=== PATIENT | female | born 1975 | race African-American/Black ===

== ENCOUNTER 2019-09-21 13:36 | Outpatient (CLI) | payer BC, SELFPAY ==
--- NOTE | ~2019-09-21 | US_ITS ---
EXAMINATION: US venous doppler [facility] EXAM DATE: 09/21/2019 14:19 INDICATION: Left leg swelling. TECHNIQUE: Multiple grayscale, color flow and Doppler images of the left lower extremity deep venous system were obtained and reviewed. There is no prior study for comparison. FINDINGS: The left common femoral, femoral and profunda veins demonstrate normal color flow, respirat ory variation, augmentation and compressibility. Compressibility, color flow confirmed within the le ft popliteal, posterior tibial, peroneal, and greater saphenous veins. IMPRESSION: 1. No left lower extremity deep venous thrombosis. Reviewed, dictated and finalized at location A. EL MUCKER
== END 2019-09-21 13:37 | disposition home or self-care (01) ==
PROVIDERS: PCP Family Medicine; Visit Provider Internal Medicine Hematology & Oncology
DX: M79.89 Other specified soft tissue disorders (principal)
CPT/HCPCS: 93971

== ENCOUNTER 2019-12-28 13:07 | Outpatient (CLI) | payer BC, SELFPAY ==
--- NOTE | ~2019-12-28 | MM_ITS ---
EXAMINATION: MM screen RT diag LT w jose HISTORY: History of left breast cancer. Status post left lumpectomy and right breast reduction surger y. TECHNIQUE: Additional 3-D tomosynthesis images of the left breast were performed and synthetic 2-D im ages were generated. Digital screening right mammogram performed. CAD analysis was submitted and inte rpreted. COMPARISON: 09/13/2018 FINDINGS: Breast composed of scattered areas of fibroglandular density. There are lumpectomy changes in the upper outer quadrant of the left breast in the area of previous multiple known malignancy. The re is associated architectural distortion. No suspicious masses or calcifications are identified. The re are surgical changes in the right breast at previous breast reduction surgery. IMPRESSION: 1. No mammographic evidence for malignancy in either breast. 2. Routine yearly screening mammogram and regular clinical breast examination are recommended. BI-RADS Category 2: Benign finding(s). Reviewed, dictated and finalized at location A. IMPRESSION: 1. No mammographic evidence for malignancy in either breast. 2. Routine yearly screening mammogram and regular clinical breast examination a re recommended. BI-RADS Category 2: Benign finding(s).
== END 2019-12-28 13:08 | disposition home or self-care (01) ==
PROVIDERS: PCP Internal Medicine Hematology & Oncology; Visit Provider Internal Medicine Hematology & Oncology
DX: Z12.31 Encounter for screening mammogram for malignant neoplasm of breast (principal); C50.412 Malignant neoplasm of upper-outer quadrant of left female breast; Z17.1 Estrogen receptor negative status [ER-]; R92.8 Other abnormal and inconclusive findings on diagnostic imaging of breast
CPT/HCPCS: 77063; 77065; 77067

== ENCOUNTER 2020-02-25 12:57 | Emergency (ER) | payer BC, SELFPAY ==
--- NOTE | ~2020-02-25 | CT_ITS ---
EXAMINATION: CT brain wo con INDICATION: Dizziness, history of breast cancer COMPARISON: 02/04/2017, 07/16/2013 TECHNIQUE: Standard unenhanced head CT. The dose-length product (DLP) was 605.33 mGy-cm. The mA was a djusted according to patient size. Iterative reconstruction technique was employed. FINDINGS: There is no intracranial hemorrhage, acute infarction, or abnormal mass lesion. The ventric les are normal. There is no abnormal mass effect or midline shift. The bourgeois-white matter differentiat ion is normal. The basal cisterns are patent. The orbits are normal. There is a chronic, stable 1.4 c m area of fluid attenuation in the right scalp, likely a sebaceous cyst. The paranasal sinuses, masto ids and calvarium are normal. IMPRESSION: 1. No acute intracranial abnormality. Reviewed, dictated and finalized at location A.
[2020-02-25 13:01] VITALS: BP 120/79; PULSE 87; RESP 16; TEMP 36.1; O2SAT 99
--- NOTE | 2020-02-25 13:35 | ED.SKABFB ---
HPI - Skin/Abscess/Foreign Bdy General Chief complaint: Skin/Abscess/Foreign Body Stated complaint: sore on scalp, headache, dizzy Time Seen by Provider: 02/25/20 13:24 Source: patient Mode of arrival: ambulatory Limitations: no limitations History of Present Illness HPI narrative: This patient is a 44 year old female who presents for evaluation of scalp swelling , headache and dizziness. Patient states she had a scalp abscess drained years ago. She states she noticed September of last year when she started chemotherapy for breast cancer she had reoccurrence of the swelling. She states she completed all her chemo a few days ago. She states she did not speak to her oncologist about her swelling . She reports initially the swelling decreased after starting chemo, but it starte to increase again. She has come to ER today because she is having headache and dizziness. She denies fever, nausea or vomiting. Related Data Home Medications Medication Instructions Recorded Confirmed No Home Medications 02/25/20 02/25/20 Allergies Allergy/AdvReac Type Severity Reaction Status Date / Time metronidazole Allergy Severe HIVES Verified 02/25/20 13:21 Penicillins Allergy Severe HIVES Verified 02/25/20 13:21 METRONIDAZOLE HCL Allergy Severe Hives / Uncoded 08/09/19 10:33 Red Face Review of Systems Review of Systems: All systems reviewed & are unremarkable except as noted in HPI and below Constitutional: Constitutional: Denies chills and Denies fever(s) ENT: Reports dizziness Gastrointestinal: Gastrointestinal: Denies abdominal pain, Denies nausea and Denies vomiting Integumentary/Breasts: Comments: scalp lump Neurologic: Reports vertigo and Reports headache(s) [facility] Past Medical History Medical History Malignant neoplasm of upper-outer quadrant of left breast in female, estrogen receptor negative Exam Const: General: no acute distress and alert Orientation/consciousness: patient oriented x3 HENMT: Head: atraumatic and scalp lesion (right parietal scalp swelling 3 cm fluctuance, no drainage, no erythema) Face and sinus: face symmetric Throat: posterior oropharynx normal Eyes: Pupils: Equal, round and reactive pupils present EOM: EOMs intact bilaterally Resp: Effort & Inspection: normal respiratory effort Cardio: Rate: regular rate Rhythm: regular rhythm Heart sounds: no murmurs GI: Inspection: non-distended Auscultation: normal bowel sounds Skin: General skin exam: normal color Neuro: General: patient oriented x3, moves all extremities, no meningeal signs, no focal motor deficits and CN's II-XI intact bilaterally Speech: normal speech Extrem: General: normal to inspection Psych: Mental Status: mental status grossly normal Course Reevaluation(s) Reevaluation #1: Patient presents with headache and dizziness. Given her cancer diagnosis I performed labs and CT brain to assess headache and dizziness , r/o mass effect. I Discussed with patient that this is a sebaceous cyst and it may return. I discussed she may need to see surgeon for cyst removal if it returns. Date: 02/25/20 Time: 16:22 Vital Signs Vital signs: Vital Signs Temperature 97.0 F L 02/25/20 13:01 Pulse Rate 87 02/25/20 13:01 Respiratory Rate 16 02/25/20 13:01 Blood Pressure 120/79 02/25/20 13:01 Pulse Oximetry 99 02/25/20 13:01 Temperature 97.0 F L 02/25/20 13:01 Pulse Rate 92 02/25/20 14:22 Respiratory Rate 16 02/25/20 13:01 Blood Pressure 93/62 L 02/25/20 14:22 Pulse Oximetry 99 02/25/20 13:01 Procedures Abscess I/D scalp: Date of Incision: 02/25/20 Time of Incision: 16:24 Side (if applicable): right Local Anesthetic: lidocaine 1% and with epi Amount of anesthesia used (mL): 1 Technique: incised with #11 blade Amount of fluid expressed (mL): 1 Irrigation: Yes Packing
[2020-02-25 14:01] LABS: Basophils Percent Auto 1.5 % (0.2-1.2); Eosinophils Absolute Auto 0.2 K/mm3 (0-0.3); Eosinophils Percent Auto 6.7 % (0-4.4); Hematocrit 34.5 % (37.0-47.0); Hemoglobin 12.1 g/dL (12.0-15.0); Immature Granulocyte Absolute 0.01 K/mm3 (0.00-0.031); Immature Granulocyte Percent A 0.4 % (0-0.5); Lymphocytes Absolute Auto 0.62 K/mm3 (0.9-3.2); Lymphocytes Percent Auto 23.2 % (18.3-44.2); Mean Corpuscular HGB Conc 35.1 g/dl (32-36); Mean Corpuscular Volume 99.7 fl (80-100); Mean Platelet Volume 9.8 fl (7.4-10.4); Monocytes Absolute Auto 0.5 K/mm3 (0.1-0.6); Monocytes Percent Auto 16.9 % (2.6-8.5); Neutrophils Absolute Auto 1.4 K/mm3 (1.3-6.7); Neutrophils Percent Auto 51.3 % (45.5-73.1); Platelet Count Result 169 k/mm3 (150-375); Red Blood Count 3.46 M/mm3 (4.2-5.4); Red Cell Distribution Width 14.3 % (11.5-14.5); White Blood Count 2.7 K/mm3 (4.5-10.0)
[2020-02-25 14:17] LABS: Alanine Aminotransferase 32 U/L (4-35); Albumin Level 4.4 g/dL (3.5-5.1); Alkaline Phosphatase 96 U/L (38-126); Anion Gap 12.7 mmol/L (7-16); Aspartate Amino Transferase 39 U/L (14-36); Bilirubin,Total 0.6 mg/dL (0.2-1.3); Blood Urea Nitrogen 11 mg/dL (7-17); CRP 0.8 mg/dL (<1.0); Calcium 9.4 mg/dL (8.4-10.2); Carbon Dioxide 27 mmol/L (22-30); Chloride 102 mmol/L (98-107); Estimated CRCL calculation 86 ml/min; Estimated Glomerular Filt Rate > 60; Glucose 102 mg/dL (65-105); Potassium 3.7 mmol/L (3.4-5.0); Sodium 138 mmol/L (137-145)
[2020-02-25 14:18] VITALS: BP 102/66; PULSE 86
[2020-02-25 14:20] VITALS: BP 106/66; PULSE 87
[2020-02-25 14:22] VITALS: BP 93/62; PULSE 92
== END 2020-02-25 16:36 | disposition home or self-care (01) ==
PROVIDERS: Emergency Provider General Practice
DX: L72.3 Sebaceous cyst (principal); L08.9 Local infection of the skin and subcutaneous tissue, unspecified; C50.412 Malignant neoplasm of upper-outer quadrant of left female breast; Z17.1 Estrogen receptor negative status [ER-]
CPT/HCPCS: 10060; 36415; 70450; 80053; 85025; 86140; 99284

== ENCOUNTER 2020-09-05 09:10 | Outpatient (CLI) | payer OTHER, SELFPAY ==
--- NOTE | ~2020-09-05 | MM_ITS ---
EXAMINATION: MM diagnostic rik LT w jose HISTORY: Left breast cancer TECHNIQUE: Craniocaudal, mediolateral, and mediolateral oblique 3-D tomosynthesis images of the left breast were performed and synthetic 2-D images were generated. CAD analysis was submitted and interpr eted. COMPARISON: 12/28/2019, 09/13/2018 BREAST PARENCHYMAL COMPOSITION: There are scattered areas of fibroglandular density. FINDINGS: Lumpectomy changes are present in the upper outer quadrant of the left breast. There are al so changes of axillary lymph node dissection. No suspicious mass, calcification or architectural dist ortion are identified. There has been no suspicious interval change. IMPRESSION: 1. Changes of lumpectomy and left axillary lymph node dissection without suspicious suspicious findin gs. 2. Routine follow-up and screening are recommended. BI-RADS Category 2: Benign finding(s). Reviewed, dictated and finalized at location A. UNTANT AUDITOR IMPRESSION: 1. Changes of lumpectomy and left axillary lymph node dissection without suspic ious suspicious findings. 2. Routine follow-up and screening are recommended. BI-RADS Category 2: Benign finding(s).
== END 2020-09-05 09:11 | disposition home or self-care (01) ==
LOC: ANHIMG 09:14
PROVIDERS: PCP Internal Medicine Hematology & Oncology; Visit Provider Internal Medicine Hematology & Oncology
DX: C50.412 Malignant neoplasm of upper-outer quadrant of left female breast (principal); Z17.1 Estrogen receptor negative status [ER-]
CPT/HCPCS: 77061; 77065; G0279

== ENCOUNTER 2021-01-01 12:54 | Emergency (ER) | payer OTHER, SELFPAY ==
--- NOTE | ~2021-01-01 | XR_ITS ---
EXAMINATION: XR shoulder RT min 2V EXAM DATE: 01/01/2021 14:40 INDICATION: Right anterior shoulder pain s/p fall 5 days ago. TECHNIQUE: The following right shoulder projections obtained: frontal projection with internal rotati on, frontal projection with external rotation, Grashey, and scapular Y view (4+ views). There is no prior study for comparison. FINDINGS: No evidence of right shoulder rotator cuff calcific tendinosis. Unremarkable right gleno humeral and acromioclavicular joints. There are no acute fractures or dislocations identified. There is no subcutaneous gas. The soft tissue is unremarkable. There are no radiopaque foreign bodies. IMPRESSION: 1. XR shoulder RT min 2V exam without acute osseous findings. Reviewed, dictated and finalized at location B.
[2021-01-01 14:00] VITALS: BP 112/81; PULSE 77; RESP 16; TEMP 36.3; O2SAT 100
--- NOTE | 2021-01-01 14:55 | ED.UPPEXIN ---
HPI - Extremity Injury (Upper) General Chief Complaint: Extremity Injury, Upper Stated Complaint: right shoulder Time Seen by Provider: 01/01/21 14:10 Source: patient and RN notes reviewed Mode of arrival: ambulatory Limitations: no limitations History of Present Illness HPI narrative: Patient presents today complaining of right shoulder pain 5 days ago after falling while rollerskating. Denies numbness or tingling in the arm or hand. States she cannot raise her arm without causing pain. Describes the pain is throbbing and currently rates 6/10. She has been taking ibuprofen without much relief. She has also tried a TENS unit, ice, and heat. complaint: injury to: right and shoulder Related Data Allergies Allergy/AdvReac Type Severity Reaction Status Date / Time metronidazole Allergy Severe HIVES Verified 01/01/21 14:04 Penicillins Allergy Severe HIVES Verified 01/01/21 14:04 METRONIDAZOLE HCL Allergy Severe Hives / Uncoded 01/01/21 14:04 Red Face Review of Systems Review of Systems: Narrative: CONSTITUTIONAL: Denies body aches, fever, chills, or sweats. EYES: Denies visual changes, redness, or discharge. ENT: Denies rhinorrhea, congestion, sore throat, or otalgia. CARDIOVASCULAR: Denies chest pain, palpitations, or edema. RESPIRATORY: Denies cough or dyspnea. GASTROINTESTINAL: Denies abdominal pain, nausea, vomiting, or diarrhea. GENITOURINARY: Denies dysuria or hematuria. SKIN: Denies rash, itching, or wounds. MUSCULOSKELETAL: Denies back pain, or myalgia. + Right shoulder injury NEUROLOGIC: Denies headache, numbness, tingling, or weakness. PSYCH: Denies depression or anxiety. [facility] Past Medical History Medical History (Updated 01/01/21 @ 14:59 by Jaida Padron, [employer]ICE [employer]INCIPAL, BC) Malignant neoplasm of upper-outer quadrant of left breast in female, estrogen receptor negative Surgical History Surgical History Delivery by section Family History Family History Other Breast cancer Heart disease Comments At time of signature, I have reviewed and agree with nursing past medical, surgical, social and family history unless otherwise noted. Please see nursing chart for further information. There is no relevant family history pertinent to the presenting complaint Exam Narrative: Exam Narrative: GENERAL: Well-appearing, well-nourished, and in no acute distress. HEAD: Normocephalic, atraumatic. EYES: EOMI. No redness or drainage. Conjunctivae normal. ENT: Mucous membranes pink and moist. NECK: Normal AROM. CHEST: No respiratory distress. MUSCULOSKELETAL: No bony tenderness of the spine. EXTREMITIES: Right shoulder: Tenderness to the anterior, posterior, and lateral shoulder joint. No edema, ecchymosis, or erythema noted. Patient can raise the shoulder in all directions up to about 45 degrees. External rotation increased pain significantly. Internal rotation increases pain less than external rotation. Distal sensation intact. Capillary refill normal. Radial pulse normal. No pain in the elbow or wrist. SKIN: Warm, dry, no rash. Capillary refill normal. Normal skin turgor. NEURO: No focal deficits. Alert and oriented x3. Gait steady. PSYCH: Normal affect. No signs of depression or anxiety. Course Vital Signs Vital signs: Vital Signs Temperature 97.4 F L 01/01/21 14:00 Pulse Rate 77 01/01/21 14:00 Respiratory Rate 16 01/01/21 14:00 Blood Pressure 112/81 01/01/21 14:00 Pulse Oximetry 100 01/01/21 14:00 Temperature 97.4 F L 01/01/21 14:00 Pulse Rate 77 01/01/21 14:00 Respiratory Rate 16 01/01/21 14:00 Blood Pressure 112/81 01/01/21 14:00 Pulse Oximetry 100 01/01/21 14:00 Reviewed. Pt has been instructed to follow up with her PCP regarding her elevated blood pressure today. MDM - Extremity Injury (Upper) Differential Diagnosis Differen
== END 2021-01-01 15:04 | disposition home or self-care (01) ==
PROVIDERS: Emergency Provider Nurse Practitioner
DX: S46.911A Strain of unspecified muscle, fascia and tendon at shoulder and upper arm level, right arm, initial encounter (principal); V00.121A Fall from non-in-line roller-skates, initial encounter; Y93.51 Activity, roller skating (inline) and skateboarding; Z85.3 Personal history of malignant neoplasm of breast
CPT/HCPCS: 73030; 99213; G0463

== ENCOUNTER 2021-04-29 11:26 | Outpatient (CLI) | payer OTHER, SELFPAY ==
--- NOTE | ~2021-04-29 | MM_ITS ---
EXAMINATION: MM diagnostic rik BI w jose HISTORY: History of left breast cancer TECHNIQUE: Additional 3-D tomosynthesis images of the breasts were performed and synthetic 2-D images were generated. CAD analysis was submitted and interpreted. COMPARISON: Comparison to multiple prior studies sequentially, with oldest reviewed study dated 09/13. BREAST PARENCHYMAL COMPOSITION: Breast composed of scattered areas of fibroglandular density. FINDINGS: Bilateral breast asymmetries are unchanged. There are lumpectomy changes in the upper outer quadrant of the left breast. IMPRESSION: 1. No mammographic evidence for malignancy in either breast. 2. Routine yearly screening mammogram and regular clinical breast examination are recommended. BI-RADS Category 2: Benign finding(s). Reviewed, dictated and finalized at location A. IMPRESSION: 1. No mammographic evidence for malignancy in either breast. 2. Routine yearly screening mammogram and regular clinical breast examination a re recommended. BI-RADS Category 2: Benign finding(s).
== END 2021-04-29 11:27 | disposition home or self-care (01) ==
LOC: ANHIMG 11:27
PROVIDERS: Visit Provider Internal Medicine Hematology & Oncology
DX: C50.412 Malignant neoplasm of upper-outer quadrant of left female breast (principal); Z17.1 Estrogen receptor negative status [ER-]
CPT/HCPCS: 77062; 77066; G0279

== ENCOUNTER 2021-05-29 21:04 | Observation (INO) | payer OTHER, SELFPAY ==
--- NOTE | ~2021-05-29 | NM_ITS ---
EXAMINATION: NM terry stress w perfusion DATE: 05/30/2021 11:49 INDICATION: Chest pain. TECHNIQUE: Rest images were obtained following intravenous administration of 10 mCi Tc99m tetrofosmin (Myoview). The patient was infused intravenously with Lexiscan (regadenoson). Then, 30.4 mCi Tc99m t etrofosmin (Myoview) was administered intravenously, and stress images were obtained. Data was recons tructed into short axis and horizontal and vertical long axis SPECT images. Gated SPECT images were a lso obtained. COMPARISON: None. FINDINGS: There is no definite reversible or fixed perfusion abnormality to suggest ischemia or infar ction. There is no segmental wall motion abnormality. Left ventricular ejection fraction measures 6 0%. IMPRESSION: 1. No definite ischemia or infarct. 2. Normal left ventricular ejection fraction measuring 60%. Reviewed, dictated and finalized at location A.
--- NOTE | ~2021-05-29 | XR_ITS ---
EXAMINATION: XR chest 2V 05/29/2021 21:41 INDICATION: Left-sided chest pain. Left arm numbness. PROCEDURE: 2 view chest COMPARISON: 12/09/2018 FINDINGS: The lungs are clear. The cardiomediastinal silhouette is within normal limits. There are no pleural effusions. There is no pneumothorax suspected. Interval removal port catheter. IMPRESSION: 1: NO ACUTE CARDIOPULMONARY DISEASE. Reviewed, dictated and finalized at location A.
--- NOTE | ~2021-05-29 | CT_ITS ---
EXAMINATION: CTA chest PE protocol DATE: 05/30/2021 13:46 INDICATION: Chest pain, history of breast cancer TECHNIQUE: Computed tomography angiography (CTA) of the chest was performed with 100 mL Omnipaque-350 intravenous contrast timed to evaluate the pulmonary arteries. Coronal maximum intensity projection 3D-reconstructions were created by the technologist. The dose-length product (DLP) was 253.47 mGy-cm. Automated exposure control and iterative reconstruction technique were employed. COMPARISON: 11/10/2018 FINDINGS: The pulmonary arteries are well-opacified. No pulmonary embolism is identified. There is mi ld dependent atelectasis. No pleural effusion or pneumothorax is identified. There is bilateral axill stacy lymphadenopathy. There are also pathologically enlarged left internal mammary, anterior mediastin al, and aorticopulmonary window lymph nodes. The heart size is normal. Lumpectomy changes are noted i n the left breast. Skin thickening of the left breast is consistent with radiation treatment. IMPRESSION: 1. No pulmonary embolism. 2. Mediastinal and bilateral axillary lymphadenopathy, consistent with metastatic disease. Reviewed, dictated and finalized at location A. IMPRESSION: 1. No pulmonary embolism. 2. Mediastinal and bilateral axillary lymphadenopathy, consistent with metastat ic disease.
--- NOTE | ~2021-05-29 | CT_ITS ---
EXAMINATION: CT brain wo con INDICATION: Headache COMPARISON: 02/25/2020 TECHNIQUE: Standard unenhanced head CT. The dose-length product (DLP) was 605.33 mGy-cm. The mA was a djusted according to patient size. Iterative reconstruction technique was employed. FINDINGS: There is no intracranial hemorrhage, acute infarction, or abnormal mass lesion. The ventric les are normal. There is no abnormal mass effect or midline shift. The bourgeois-white matter differentiat ion is normal. The basal cisterns are patent. The orbits are normal. There is mild mucosal thickening of the paranasal sinuses. IMPRESSION: 1. No acute intracranial abnormality. Reviewed, dictated and finalized at location A.
--- NOTE | 2021-05-29 21:07 | ECG_ITS ---
Measurements Intervals [place] Rate: 72 P: 55 DE: 145 QRS: 15 QRSD: 88 T: 17 QT: 382 QTc: 420 Interpretive Statements SINUS RHYTHM NORMAL ECG Electronically Signed On 05-30-2021 5:35:17 CDT by Artie Graham D.O.
[2021-05-29] MEDS: ASPIRIN 81 MG CHEWABLE TABLET 324 MG PO (21:20)
[2021-05-29 21:27] VITALS: BP 113/78; PULSE 81; RESP 16; TEMP 36.6; O2SAT 100
[2021-05-29 21:31] VITALS: BP 113/78; PULSE 81; RESP 16; TEMP 36.7; O2SAT 99
[2021-05-29 21:31] LABS: Basophils Percent Auto 0.9 % (0.2-1.2); Eosinophils Absolute Auto 0.4 K/mm3 (0-0.3); Eosinophils Percent Auto 8.1 % (0-4.4); Hemoglobin 11.9 g/dL (12.0-15.0); Lymphocytes Absolute Auto 1.05 K/mm3 (0.9-3.2); Lymphocytes Percent Auto 24.4 % (18.3-44.2); Mean Corpuscular Hemoglobin 31.7 pg (26-34); Mean Corpuscular Volume 93.3 fl (80-100); Mean Platelet Volume 9.7 fl (7.4-10.4); Monocytes Absolute Auto 0.5 K/mm3 (0.1-0.6); Monocytes Percent Auto 11.4 % (2.6-8.5); Neutrophils Absolute Auto 2.4 K/mm3 (1.3-6.7); Neutrophils Percent Auto 55.2 % (45.5-73.1); Platelet Count Result 205 k/mm3 (150-375); Red Blood Count 3.75 M/mm3 (4.2-5.4); Red Cell Distribution Width 12.1 % (11.5-14.5); White Blood Count 4.3 K/mm3 (4.5-10.0)
[2021-05-29 21:40] LABS: INR 0.9; Partial Thromboplastin Time 24.6 SECONDS (22.3-36.8); Prothrombin Time 12.4 Seconds (11.1-14.7)
[2021-05-29 22:02] LABS: Anion Gap 8 mmol/L (8-16); Blood Urea Nitrogen 11 mg/dL (7-17); Calcium 9.6 mg/dL (8.4-10.2); Carbon Dioxide 26 mmol/L (22-30); Chloride 106 mmol/L (98-107); Estimated CRCL calculation 77 ml/min; Estimated Glomerular Filt Rate > 60; Glucose 108 mg/dL (65-110); Potassium 3.7 mmol/L (3.4-5.0); Sodium 140 mmol/L (137-145)
--- NOTE | 2021-05-29 22:04 | ECG_ITS ---
Measurements Intervals [place] Rate: 75 P: 35 [place]: 116 QRS: -20 QRSD: 89 T: 11 QT: 400 QTc: 450 Interpretive Statements SINUS RHYTHM BASELINE ARTIFACT- I, II, III, AVR, AVF, V1, V3-V6 NORMAL ECG Electronically Signed On 05-30-2021 5:36:52 CDT by Artie Graham D.O.
[2021-05-29 22:14] LABS: Troponin I < 0.012 ng/mL (0.000-0.034)
--- NOTE | 2021-05-29 22:21 | ED.CHESTPAIN ---
HPI - Chest Pain General Chief Complaint: Chest Pain Stated Complaint: chest pain, left hand numbness Time Seen by Provider: 05/29/21 21:45 Source: patient, RN notes reviewed and old records reviewed Mode of arrival: ambulatory Limitations: no limitations History of Present Illness HPI narrative: This is a 45 year old female with history of breast CA who presents for evaluation of chest pain and left arm numbness. Patient states she was standing when she developed midsternal chest pressure that radiated to back and jaw. She reports associated left head pain and left hand numbness. She states her symptoms are worse with exertion. These symptoms have been constant for 2 hours. She also reports nausea and shortness of breath. Related Data Home Medications Medication Instructions Recorded Confirmed No Home Medications 05/30/21 05/30/21 Allergies Allergy/AdvReac Type Severity Reaction Status Date / Time metronidazole Allergy Severe HIVES/RED Verified 05/29/21 21:13 FACE Penicillins Allergy Severe HIVES Verified 01/01/21 14:04 Review of Systems Review of Systems: All systems reviewed & are unremarkable except as noted in HPI and below PMFSH Past Medical History Medical History (Updated 05/30/21 @ 05:52 by Kimberly Carbone MD) Malignant neoplasm of upper-outer quadrant of left breast in female, estrogen receptor negative Surgical History Surgical History (Updated 05/29/21 @ 22:33 by Kimberly Carbone MD) Delivery by section History of partial mastectomy of left breast Family History Family History (Updated 05/30/21 @ 03:07 by Melina Andrade RN) Sibling Breast cancer Asthma Father Heart disease Heart attack Social History Social History Smoking status: Never smoker Second hand tobacco smoke exposure: No Alcohol intake: never Substance use: never Substance use type: does not use Spiritual care concerns: No Exam Narrative: GENERAL: Well-appearing, well-nourished, and in no acute distress. HEAD: Normocephalic, atraumatic EYES: PERRLA and EOMI, conjunctiva clear without discharge EARS: TM's clear bilaterally without erythema or dullness NOSE: Nares clear, no rhinorrhea or epistaxis THROAT:Mucous membranes moist, Oropharynx normal without erythema, exudate, peritonsillar swelling or fluctuance NECK: Supple, without lymphadenopathy or mass RESPIRATORY: No respiratory distress, Airway patent, Respirations non-labored, Clear to auscultation without rales, rhonchi or wheeze HEART: Regular rate and rhythm. No murmur heard. Normal peripheral pulses. ABDOMEN: Soft, nontender, nondistended, normal active bowel sounds. No masses. No rebound or guarding, No organomegaly. EXTREMITIES: No edema, normal strength with full range of motion. SKIN: Warm, dry, normal color without rash NEURO: Alert and oriented x3. CN 2-12 grossly intact. No focal deficits. PSYCH: Normal mood and affect. Skin: General skin exam: normal color Rashes: no rashes Neuro: General: patient oriented x3, moves all extremities, no meningeal signs, no focal motor deficits, CN's II-XI intact bilaterally and normal sensation to monofilament Cranial nerves: Yes CN's II-XII intact bilaterally and Yes Nystagmus not present Speech: normal speech Motor exam (neuro): 5/5 motor strength present throughout, Pronator motor function not present, No tremor noted and No asterixis Sensory Exam: normal sensation and Normal double simultaneous stimulation for sensation Coordination: [id number] test normal and [id number] test normal Extrem: General: normal to inspection Other: strong bilateral radial pulse Psych: Mental Status: mental status grossly normal Course Reevaluation(s) Reevaluation #1: I discussed with patient labs and Ct unremarkable. She agrees to observation due to continued symptoms. No deficit on neuroexam. Tr
[2021-05-29 22:32] LABS: D Dimer 0.38 ug/mL (<0.48)
[2021-05-29] MEDS: NITROGLYCERIN OINTMENT 1 INCH DOSE 0.5 INCH TRANSDERM (22:44)
[2021-05-29] MEDS: ONDANSETRON INJ 4 MG/2 ML VIAL IV PUSH (22:45)
[2021-05-29] MEDS: SODIUM CHLORIDE 0.9% IV 1,000 ML 999 ML IV CONT (22:45)
[2021-05-30] VITALS (10 sets, daily range): BP systolic 102–142; BP diastolic 62–78; PULSE 60–94; RESP 12–20; TEMP 35.9–36.5; O2SAT 92–100; BMI 30.4
--- NOTE | 2021-05-30 | EST_ITS ---
Patient Info Name: Al Ulloa Age: 45 years : 1975 Gender: Female Ht: 66 in Wt: 184 lbs BSA: 2.00 m2 HR: 66 bpm BP: 113 / 74 mmHg Heart Rhythm: Sinus Rhythm Exam Date: 05/30/2021 10:32 AM Exam Location: [facility] Stress Patient Status: Outpatient Admit Date: 05/30/2021 Staff Ordering Physician: Artie Graham DO Attending Provider: Melissa Beck PA-C Exercise Technologist: Jaye Yan CT Exercise Physician: Artie Graham DO Exam Type: CA stress terry w NM Study Info Indications R07.9 - Chest pain, unspecified A regadenoson stress test was performed. Summary 1. 1. Negative lexiscan stress test for ischemic ST changes by ECG criteria. 2. 2. Stable hemodynamics throughout the test. 3. 3. Nuclear scan to follow and will be reported separately. Please correlate with it. 4. 4. Patient informed of the above results. Protocol: Lexiscan Stress ECG Details Stage: REST Duration (min): 1 min : 7 sec HR (bpm): 77 SBP (mmHg): 113 DBP (mmHg): 74 Stage: REST Duration (min): 19 min : 34 sec HR (bpm): 82 SBP (mmHg): 113 DBP (mmHg): 74 Stage: STAGE 1 Duration (min): 0 min : 59 sec HR (bpm): 109 SBP (mmHg): 115 DBP (mmHg): 60 Stage: RECOVERY Duration (min): 1 min : 0 sec HR (bpm): 105 SBP (mmHg): 115 DBP (mmHg): 60 Stage: RECOVERY Duration (min): 2 min : 0 sec HR (bpm): 103 SBP (mmHg): 104 DBP (mmHg): 65 Stage: RECOVERY Duration (min): 2 min : 8 sec HR (bpm): 103 SBP (mmHg): 104 DBP (mmHg): 65 Rest HR: 82 bpm Peak HR: 110 bpm Rest Sys BP: 113 mmHg Peak Sys BP: 115 mmHg Max Pred HR: 175 bpm % Max Pred HR: 63 % Target HR: 149 bpm Max RPP: 12,650 bpm*mmHg Termination Reason: Completed protocol Cardiac Symptoms: Shortness of breath Total Time: 1 min : 0 sec Rest Patten BP: 74 mmHg Peak Patten BP: 60 mmHg Total Dose: 0.4 mg Resting ECG Sinus rhythm. Stress ECG No ST changes. Arrhythmias None. Report Signatures
--- NOTE | 2021-05-30 | ECHO_ITS ---
Patient Info Name: Al Ulloa Age: 45 years : 1975 Gender: Female Ht: 66 in Wt: 188 lbs BSA: 2.02 m2 HR: 67 bpm BP: 142 / 69 mmHg Technical Quality: Good Exam Date: 05/30/2021 1:09 PM Exam Location: [facility] Pulmonary Exam Room: 211 Patient Status: Inpatient Admit Date: 05/30/2021 Staff Ordering Physician: Pancho Morel MD Anime Designer: Briana Allen RDCS Attending Provider: Melissa Beck PA-C Referring Physician: Maria Teresa CRUZ; Exam Type: CA echo doppler color flow Study Info Indications - chest discomfort Complete two-dimensional, color flow and Doppler transthoracic echocardiogram is performed. Summary 1. Complete two-dimensional, color flow and Doppler transthoracic echocardiogram is performed. 2. Left ventricular chamber dimension is normal. 3. Left ventricular systolic function is normal, estimated at 55-60%. 4. The left ventricular diastolic function is grade I diastolic dysfunction. 5. E/e' 5 is not elevated. 6. No pulmonary hypertension, estimated pulmonary arterial systolic pressure is 14 mmHg. Left Ventricle E/e' 5 is not elevated. Left ventricular chamber dimension is normal. Left ventricular systolic function is normal, estimated at 55-60%. The left ventricular diastolic function is grade I diastolic dysfunction. Right Ventricle Right ventricular chamber dimension is normal. Right ventricular systolic function is normal. Left Atria Left atrial chamber dimension is normal. Right Atria Right atrial chamber dimension is normal. Aortic Valve The aortic valve is trileaflet. There is no aortic valve stenosis. There is no aortic valve regurgitation. Pulmonic Valve There is no pulmonic regurgitation. Mitral Valve There is no mitral valve stenosis. There is no mitral valve regurgitation. Tricuspid Valve There is no tricuspid valve regurgitation. No pulmonary hypertension, estimated pulmonary arterial systolic pressure is 14 mmHg. Pericardium/Pleural There is no pericardial effusion. Inferior Vena Cava Normal inferior vena cava with >50% collapse upon inspiration consistent with normal right atrial pressure, 5 mmHg. Aorta The aortic root size at the sinus of Valsalva is normal. Left Ventricular Outflow Tract Name Value Normal LVOT 2D LVOT Diameter 2.0 cm LVOT Doppler LVOT Peak Gradient 4 mmHg LVOT Mean Gradient 2 mmHg LVOT VTI 20 cm LVOT VTI/AV VTI Ratio 0.9 LVOT Stroke Volume 62 ml LVOT CO 14.0 l/min LVOT CI 6.9 l/min/m2 Pulmonic Valve Name Value Normal PV Doppler PV Peak Gradient 2 mmHg Mitral Valve
[2021-05-30] MEDS: MORPHINE SULFATE (*CRX) 4 MG/ML INJ IV PUSH (01:09)
[2021-05-30] MEDS: ONDANSETRON INJ 4 MG/2 ML VIAL IV PUSH (01:10)
[2021-05-30 01:27] LABS: Troponin I < 0.012 ng/mL (0.000-0.034)
--- NOTE | 2021-05-30 01:30 | PM.IMHP ---
H&P: HPI History of Present Illness Date/Time: 05/30/21 01:30 Chief Complaint: Chest pain Narrative: This is a 45-year-old female with past medical history significant for left breast CA status post surgical removal and radiation. Patient presents to the to the emergency room due to chest pain rule localized to the precordial area with radiation to the left shoulder and arm with numbness, precordial pain. This happened while the foot patient was standing after using her bathroom. Denies any syncope near syncope, lightheadedness , dizziness, nausea, vomiting ,abdominal pain, diarrhea, fevers, rigors, chills ,cough ,sputum production, she has been in her usual state of health. Denies any chest pain with activity or exertion no PND no orthopnea no leg swelling. Preliminary workup has been essentially nonrevealing Review of Systems Review of Systems: Chest pain Constitutional: Constitutional: Denies chills, Denies fatigue, Denies fever(s), Denies lethargy, Denies night sweats and Denies weakness Eyes: Eyes: Denies change in vision ENT: Denies dysphagia, Denies vertigo, Denies dizziness, Denies nasal congestion, Denies nasal discharge, Denies nasal obstruction and Denies odynophagia Cardiovascular: Cardiovascular: Reports chest pain at rest, Denies irregular heart rhythm, Denies claudication, Denies leg edema, Denies lightheadedness, Denies radiating jaw, neck or arm pain, Denies palpitations, Denies dyspnea, Denies dyspnea on exertion and Denies orthopnea Respiratory: Respiratory: Denies cough, Denies excessive phlegm production, Denies dyspnea and Denies wheezing Gastrointestinal: Gastrointestinal: Denies abdominal pain, Denies dyspepsia, Denies heartburn, Denies nausea and Denies vomiting Genitourinary: Genitourinary: Reports as per HPI Musculoskeletal: Musculoskeletal: Denies arthralgias Integumentary/Breasts: Skin/Breast: Denies rash Neurologic: Denies focal weakness and Denies Sensory deficit (Neuro) Psychiatric: Psychiatric: Reports as per HPI Endocrine: Endocrine: Reports as per HPI Hematologic/Lymphatic: Hematologic/Lymphatic: Reports as per HPI Allergic/Immunologic: Allergic/Immunologic: Reports as per HPI [facility] Past Medical History Medical History (Updated 05/30/21 @ 05:08 by Pancho Morel MD) Malignant neoplasm of upper-outer quadrant of left breast in female, estrogen receptor negative Surgical History Surgical History (Updated 05/29/21 @ 22:33 by Kimberly Carbone MD) Delivery by section History of partial mastectomy of left breast Family History Family History (Updated 05/30/21 @ 03:07 by Melina Andrade, RUBEN) Sibling Breast cancer Asthma Father Heart disease Heart attack Social History Social History Smoking status: Never smoker Second hand tobacco smoke exposure: No Alcohol intake: never Substance use: never Substance use type: does not use Spiritual care concerns: No Meds Home Medications and Allergies Allergies Allergy/AdvReac Type Severity Reaction Status Date / Time metronidazole Allergy Severe HIVES/RED Verified 05/29/21 21:13 FACE Penicillins Allergy Severe HIVES Verified 01/01/21 14:04 Vital Signs Vital Signs - 24 hr 05/29/21 21:27 05/29/21 21:31 05/30/21 01:17 Temperature 97.9 F 98.1 F Pulse Rate 81 81 81 Respiratory Rate 16 16 18 Blood Pressure 113/78 113/78 113/78 Pulse Oximetry 100 99 100 Exam Narrative: Laying in [facility] Const: General: cooperative, comfortable, no acute distress, well developed, alert, awake and other (Well-appearing) Nutritional Appearance: average body habitus Orientation/consciousness: patient oriented x3 HENMT: Head: normal to inspection, normocephalic and atraumatic Ears: hearing grossly normal bilaterally General nose exam: Normal external nose present Face and sinus: normal facial exam Mouth: Yes Normal oral and pa
--- NOTE | 2021-05-30 03:04 | PC.NURSE ---
Report received by RUBEN Coon with the ED department at 0243. All questions answered and plan of care reviewed.
--- NOTE | 2021-05-30 03:05 | ADMGEN ---
This patient, Al Ulloa, was admitted to IMU Room 211-01 at 0257 from the ED. Patient/family oriented to hospital policies and general routines including ID bracelet, bed and alarms, visiting hours, pain management, procedures, bathroom and other care routines, personal items, smoking policy, room service/diet, and visiting hours. Information on how to activate the Rapid Response Team has been discussed. Patient/Family are encouraged to report perceived risks to care and to ask questions if they do not understand what they are told or what they should do.
[2021-05-30 03:49] LABS: Troponin I < 0.012 ng/mL (0.000-0.034)
[2021-05-30 05:46] LABS: Cholesterol 208 mg/dL (0-200); HDL Direct 81 mg/dL; Triglycerides 82 mg/dL (<150)
[2021-05-30 05:57] LABS: LDL Cholesterol Direct 89 mg/dL
--- NOTE | 2021-05-30 06:43 | PM.CNCAR ---
Assessment and Plan Assessment and plan (1) Chest pain: Code(s): R07.9 - Chest pain, unspecified Status: Acute Assessment and Plan: Atypical. Resolved. Ruled out for NM by series of troponin and EKG. Obtain Lexiscan myoview stress test and echo. If unremarkable, no further cardiac workup is needed. History of Present Illness History of Present Illness Consult date/time: 05/30/21 06:43 Reason for consult: Chest pain. 45 yr old woman presents to ED with chest pain since last evening at 6:30 pm. She has a history of left breast cancer s/p resection, radiation and chemotherapy. 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 It lasted until she arrived to ED. No longer having it now. She can walk 1 mile without any problems but recently having some dizziness while standing or walking. She drinks 2 cups of coffee a day and 1 small bottle of water. Denies orthopnea, PND, edema. WBC 4.3, Hb 11.9.Trop neg x 3 sets. EKG: Sinus rhythm. CXR: Normal. Reason For Visit: chest pain, parethesia Review of Systems Review of Systems: All systems reviewed & are unremarkable except as noted in HPI and below Constitutional: Constitutional: Reports as per HPI, Denies chills and Denies fever(s) Cardiovascular: Cardiovascular: Reports as per HPI, Reports chest pain, Denies irregular heart rhythm, Denies leg edema, Reports lightheadedness and Denies dyspnea on exertion Respiratory: Respiratory: Reports as per HPI and Denies dyspnea Gastrointestinal: Gastrointestinal: Reports as per HPI and Denies abdominal pain Genitourinary: Genitourinary: Reports as per HPI and Denies dysuria Musculoskeletal: Musculoskeletal: Reports as per HPI Neurologic: Reports as per HPI, Reports dizziness and Denies syncope [facility] Past Medical History Medical History (Updated 05/30/21 @ 05:52 by Kimberly Carbone MD) Malignant neoplasm of upper-outer quadrant of left breast in female, estrogen receptor negative Surgical History Surgical History (Updated 05/29/21 @ 22:33 by Kimberly Carbone MD) Delivery by section History of partial mastectomy of left breast Family History Family History (Updated 05/30/21 @ 03:07 by Melina R. Raymond, RN) Sibling Breast cancer Asthma Father Heart disease Heart attack Social History Social History Smoking status: Never smoker Second hand tobacco smoke exposure: No Alcohol intake: never Substance use: never Substance use type: does not use Spiritual care concerns: No Meds Home Medications and Allergies Home Medications Medication Instructions Recorded Confirmed Type No Home Medications 05/30/21 05/30/21 History Allergies Allergy/AdvReac Type Severity Reaction Status Date / Time metronidazole Allergy Severe HIVES/RED Verified 05/29/21 21:13 FACE Penicillins Allergy Severe HIVES Verified 01/01/21 14:04 Vital Signs Vital Signs - 24 hr 05/29/21 21:27 05/29/21 21:31 05/30/21 01:17 Temperature 97.9 F 98.1 F Pulse Rate 81 81 81 Respiratory Rate 16 16 18 Blood Pressure 113/78 113/78 113/78 Pulse Oximetry 100 99 100 05/30/21 02:46 05/30/21 04:00 Temperature 97.4 F L Pulse Rate 71 67 Respiratory Rate 16 20 Blood Pressure 113/78 142/69 H Pulse Oximetry 100 100 Exam Const: General: cooperative, healthy appearing and comfortable Resp: Auscultation: clear to auscultation bilaterally, no crackles, no rales, no rhonchi and no wheezes Cardio: Jugular venous distension: no JVD Rate: regular rate Rhythm: regular rhythm Heart sounds: no murmurs Peripheral pulses: dorsalis pedis present GI: GI Palp: No abdominal tenderness and Yes Soft to palpation Neuro: General: oriented to person, oriented to place and oriented to time Extrem: Right lower extremity: no edema Left lower extremity: no
--- NOTE | 2021-05-30 13:03 | PM.DS ---
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 follows dr. mishra (4) Lymphadenopathy: Code(s): R59.1 - Generalized enlarged lymph nodes Status: Acute Assessment and Plan: as below, PET will be ordered outpt DS: Summary Hospital Course Hospital Course: Patient is a 45-year-old female with a past medical history of treated breast cancer who presented emergency room for chest pain with associated arm pain. Patient tells me that she was standing up and noted that she had midsternal chest squeezing that radiated to her arm and caused her to have shortness of breath. This improved when she sat down. She also had a slight headache with this as well so she came into the ER. EKG in the ER showed normal sinus rhythm. Troponins negative x3. CBC shows slight leukopenia. D-dimer negative. BMP within normal limits. Patient was admitted to the hospitalist service and observed. She had no squeezing chest pain or arm pain throughout her stay. She underwent a stress test which did not show any evidence of ischemia and also saw cardiology. While hospitalized, she did have some pleuritic like chest pain that felt like a stabbing pain when she breathed in that was different from the chest pain she had the day prior. Her chest x-ray was negative on admission and her lungs were clear on exam. The pain was not reproducible and was completely different than the CP that brought her in. A CTA was done which show no PE but did show mediastinal and bilateral axillary lymphadenopathy which may indicate metastatic disease. I let her know that she needs to follow up with Dr. Mishra and she has an appointment next week for this. She wsa feel better day of discharge and was ready to go. She was educated on the worrisome signs and symptosm to come back to the ER or and was discharged in stable condition. I called Dr. Mishra and let him know about the results. He is going to order a PET scan and I let the pt know to expect a call from scheduling. Status at Discharge Functional status at discharge: independent ambulation Overall status at discharge: patient is progressing back to baseline Time Spent with Patient Time attestation: Total time spent providing and/or coordinating discharge services:38 min Exam Narrative: General: Well developed well nourished patient in NAD HEENT: normocephalic Neck: supple Neuro: Alert and oriented x4. Cranial nerves 2-12 intact. Equal strength the upper lower extremity 5/5 CV:RRR. Telemetry without abnormal review Resp:CTA. No retractions or dyspnea on exertion. No reproducible pain to palpation Abd: Soft, non distended. No pain to palpation. Positive bowel sounds Extremities: No swelling, erythema, or pain to palpation. DS: Data Data Completed and Pending Labs on day of discharge: Labs from last 24 hours 05/30/21 05/30/21 05/30/21 03:15 00:29 00:28 WBC RBC Hgb Hct MCV MCH MCHC RDW Plt Count MPV Immature Gran % (Auto) Neut % (Auto) Lymph % (Auto) [place] % (Auto) Eos % (Auto) Baso % (Auto) Lymph # (Auto) M
--- NOTE | 2021-05-30 13:46 | PC.NURSE ---
On 05/30/21, the student, [Sharonda Saab], provided care and completed [facility] documentation on this patient. I have reviewed the student's documentation and agree with the findings.
== END 2021-05-30 17:08 | disposition home or self-care (01) ==
LOC: ANHED 05-30 02:22 → ANHIMU 05-30 02:36
PROVIDERS: Family Medicine; Internal Medicine Cardiovascular Disease; Admitting Provider Internal Medicine; Emergency Provider General Practice; Visit Provider Family Medicine
DX: R07.89 Other chest pain (principal); D72.819 Decreased white blood cell count, unspecified; R59.1 Generalized enlarged lymph nodes; Z85.3 Personal history of malignant neoplasm of breast; Z90.12 Acquired absence of left breast and nipple
CPT/HCPCS: 36415; 70450; 71046; 71275; 78452; 80048; 80061; 84484; 85025; 85380; 85610; 85730; 93005; 93017; 93306; 96365; 96374; 96375; 99285; A9270; A9502; G0378; J0131; J2270; J2405; J2785; J7030; Q9967

== ENCOUNTER 2021-06-20 09:57 | Outpatient (CLI) | payer OTHER, SELFPAY ==
--- NOTE | ~2021-06-20 | PE_ITS ---
EXAMINATION: PET skull to mid thigh DATE: 06/20/2021 12:54 INDICATION: Malignant neoplasm of the upper outer quadrant of left breast. TECHNIQUE: Blood glucose level was 101 mg/dL. 7.650 mCi of 18-fluorodeoxyglucose (18-FDG) was adminis tered i.v. Low dose computed tomography (CT) images were acquired from the base of the brain to the p roximal thighs for attenuation correction and anatomic localization. Automated exposure control was e mployed. Dose-length product (DLP) was 576 mGy-cm. Positron emission tomography (PET) images were acq uired in the same distribution. COMPARISON: Chest CT 05/30/2021 FINDINGS: Head/neck: There is increased activity in the oropharynx, major salivary glands, and glottis without CT correlate, likely physiologic. There is increased activity in a normal-sized left supraclavicular lymph node. Chest: There is mild scarring at left lung apex. No pleural effusion. The heart size is normal. No pe ricardial effusion. There is increased activity in mediastinal, left subpectoral, and bilateral axill stacy lymph nodes. A left internal mammary node measures 2.7 x 2.0 cm with maximum SUV of 7.3. There is skin thickening of left breast, consistent with changes of radiation therapy. There is increased act ivity in infiltrating soft tissue in medial and inferior left breast. There are changes of lumpectomy of left breast. Abdomen/pelvis/proximal thighs: The liver, gallbladder, spleen, pancreas, adrenal glands, and kidneys are normal. There are no dilated loops of bowel. There is a widemouthed ventral hernia containing no nobstructed small bowel. There are no pathologically enlarged lymph nodes. There is no free intraperi toneal fluid. There is no osseous metastatic disease. IMPRESSION: 1. Mediastinal, left subpectoral, bilateral axillary, and left supraclavicular lymphadenopathy with i ncreased activity, consistent with metastatic disease. 2. Increased activity in infiltrating soft tissue in medial and inferior left breast suspicious for r ecurrent malignancy. Reviewed, dictated and finalized at location A. HOLOGIST SOCIAL IMPRESSION: 1. Mediastinal, left subpectoral, bilateral axillary, and left supraclavicular lymphadenopathy with increased activity, consistent with metastatic disease. 2. Increased activity in infiltrating soft tissue in medial and inferior left b reast suspicious for recurrent malignancy.
[2021-06-20 10:13] LABS: Glucose Point of Care 101 mg/dl (65-105)
== END 2021-06-20 09:58 | disposition home or self-care (01) ==
PROVIDERS: Visit Provider Internal Medicine Hematology & Oncology
DX: C50.412 Malignant neoplasm of upper-outer quadrant of left female breast (principal); Z17.1 Estrogen receptor negative status [ER-]; R59.0 Localized enlarged lymph nodes; R92.8 Other abnormal and inconclusive findings on diagnostic imaging of breast
CPT/HCPCS: 78815; A9552

== ENCOUNTER 2021-07-15 02:41 | Day surgery (SDC) | payer SELFPAY ==
[2021-07-10 16:13] VITALS: BMI 31.1
--- NOTE | 2021-07-10 16:18 | SUR.PREOP ---
Report to the Outpatient Waiting Room, entrance under the green pavilion located off [facility], at time _0930___ on date __07/15/21 . OR Time: __11:30__. - You and your visitor will be asked a series of questions to screen for COVID 19 for your protection. - A mask is required within the hospital. - Only one visitor is allowed at this time. Patient visitors will be guided where to wait when not with patient. Preoperative COVID Testing Requirements: No COVID Test needed if: (proof is required; if not received patient will have Rapid Test prior to entry) - Patient has received COVID Vaccine at least 14 days prior to procedure date or - Patient has positive COVID test result within last 90 days of surgery date. COVID Test needed if above criteria is not met If not COVID vaccinated a COVID test must be conducted within 72 hours of surgery and patient is asked to isolate self from time of testing until procedure. You will go to the [employer] [facility] Testing Site for your COVID testing. The [employer] [facility] site is located at the corner of [address] [facility]. You will only be called if COVID results are positive and your surgeon may reschedule your elective surgery date. Patients may have clear liquids (water, carbonated beverages, clear teas, apple juice) until 3 hours prior to surgery with a maximum of 20 ounces. - No food from midnight until time of surgery - Infants may have breast milk until 4 hours before surgery, infant formula 6 hours prior to surgery. - Children will be allowed to drink immediately following surgery. If applicable, please bring a bottle or sippy cup to assist with drinking. Juice, water, soda, and popsicles are readily available. For infants on formula, please bring formula the day of surgery. Pacifiers are allowed. Take the following medications with a SIP of water the morning of surgery: __N/A Medications to discontinue per physician vitamins Date to take last dose____3 days prior Please no make-up, nail bolivian, hairspray, perfume, deodorant, or body powder the day of surgery. No jewelry (including any body piercings) or valuables the day of surgery, leave them at home. Please take a shower or bath the night before, or the morning of, surgery with an antibacterial soap. Wear comfortable, loose fitting clothing. Children are encouraged to wear pajamas. - Jewelry must be removed prior to entering the operating room. Rings and piercings that are not removed may be cut off. - The hospital will not accept responsibility for valuables. - Please leave all valuables, including medications, at home the day of surgery. If you are going home after surgery, a licensed vacuum truck driver must drive you home. - NO public transportation without another adult. - We recommend that an adult stay with you for 24 hours following discharge. - We also recommend that you do not drive, make important decision, drink alcoholic beverages, or take any drugs that were not prescribed by your health care provider for at least 24 hours after your discharge time. For Pediatric surgeries, we recommend two adults accompany the child home (only one inside the building at this time). Follow any additional instructions given to you from your surgeon. Telephone instructions given to ___patient and asked if any additional questions and then verbalized understanding. Patient advised to call surgeon office or pre surgery nurse liaison [phone] if any additional questions.
--- NOTE | ~2021-07-15 | XR_ITS ---
EXAMINATION: XR chest port-a-cath/central DATE: 07/15/2021 12:54 INDICATION: Port placement. TECHNIQUE: A single frontal view of the chest was obtained. COMPARISON: Chest 2 views 05/29/2021 FINDINGS: There is mild scarring at left lung apex. There is mild atelectasis at left lung base. No p leural effusion or pneumothorax. The heart size is normal. Mediastinal lymphadenopathy is noted. Ther e is a left subclavian port with tip in superior vena cava. There is deviation of the catheter betwee n the clavicle and first rib. There are radiopaque markers in left breast. IMPRESSION: 1. Port tip in superior vena cava. Deviation of the catheter between the clavicle and first rib sugge sts increased risk of catheter fracture (pinch-off syndrome). 2. Mediastinal lymphadenopathy, consistent with metastatic disease. Reviewed, dictated and finalized at location A. WAY MAINTENANCE CREW WORKER IMPRESSION: 1. Port tip in superior vena cava. Deviation of the catheter between the clavic le and first rib suggests increased risk of catheter fracture (pinch-off syndro me). 2. Mediastinal lymphadenopathy, consistent with metastatic disease.
--- NOTE | ~2021-07-15 | XR_ITS ---
EXAMINATION: XR fl guide central line place EXAM DATE: 07/15/2021 12:38 INDICATION: Danitza catheter insertion. TECHNIQUE: Fluoroscopy used during XR fl guide central line place performed by Dr. Leonor Forrest MD. Radiologist was not present for the imaging or procedure. Total fluoroscopic time of 28 seconds . The DAP for this procedure was 1.1 mGym2. A total of 2 images sent to PACS from the exam. FINDINGS: Images demonstrate left-sided portacatheter in expected position. Correlate with procedur e note. IMPRESSION: Fluoroscopy used during XR fl guide central line place. Reviewed, dictated and finalized at location B. OCELLULOSE MAKER
[2021-07-15 09:49] VITALS: BP 118/81; PULSE 90; RESP 16; TEMP 36.3; O2SAT 99
[2021-07-15] MEDS: LACTATED RINGERS 1,000 ML 30 ML IV CONT (10:03)
[2021-07-15] MEDS: KETOROLAC 15 MG/ML VIAL (*BKC) IV PUSH (10:04)
--- NOTE | 2021-07-15 10:07 | WPDANESEPPF ---
Anes - Initial Pre Proc Eval Procedure: Operation Date: 07/15/21 11:30 Proposed Procedures p Insertion of Danitza Cath - Leonor Forrest MD Date/Time: 07/15/21 10:07 Surgeon: Leonor Forrest MD Pre Op Diagnosis: Breast Cancer Patient Data Age: 45 Gender: F Height: 1.68 m Weight: 84.8 kg Last Vital Signs Temp 36.3 C L 07/15/21 09:49 Pulse 90 07/15/21 09:49 Resp 16 07/15/21 09:49 BP 118/81 07/15/21 09:49 Pulse Ox 99 07/15/21 09:49 Allergies Allergy/AdvReac Type Severity Reaction Status Date / Time metronidazole Allergy Severe HIVES/RED Verified 07/15/21 09:44 FACE Penicillins Allergy Severe HIVES Verified 07/15/21 09:44 Home Medications Medication Instructions Recorded Confirmed Type No Home Medications 05/30/21 07/15/21 History Patient hx anesthesia problems: none Family hx anesthesia problems: none Results Review: All pre-operative results and documents have been reviewed as part of the pre-operative evaluation. [facility] Past Medical History Medical History Malignant neoplasm of upper-outer quadrant of left breast in female, estrogen receptor negative Surgical History Surgical History Delivery by section History of partial mastectomy of left breast Family History Family History Sibling Breast cancer Asthma Father Heart disease Heart attack Social History Social History Smoking status: Never smoker Second hand tobacco smoke exposure: No Alcohol intake: never Alcohol use details: socially Substance use: never Substance use type: marijuana Last use: 4 months ago Living arrangements: with family Spiritual care concerns: No Anes - Eval Final PreProcedure Day of Procedure 07/15/21 10:07 Patient weight: obese Heart: regular rate and rhythm Lungs: clear to auscultation Airway: Mallampati scale class 1 Neurological: alert and oriented Last oral intake: >/= 8 hours ASA classification: III Emergent: no Anesthetic plan: proceed Anesthesia type and monitoring: general GIVS and standard monitoring Results Review: All pre-operative results and documents have been reviewed as part of the pre-operative evaluation. Informed Consent: The patient's anesthetic plan and its attendant risks and benefits were discussed with the patient/family/POA. Questions were solicited and answers provided to the satisfaction of the patient/family/POA.
[2021-07-15] MEDS: ceFAZolin 2 GM/D5W 50 ML 2 GM/50 ML BAG IVPB (12:00)
--- NOTE | 2021-07-15 12:01 | P.PNGS_ITS ---
Progress Note: A&P Assessment and Plan (1) Lymphadenopathy: Code(s): R59.1 - Generalized enlarged lymph nodes Status: Acute Assessment and Plan: Metastatic breast cancer, will need further treatment, will place port Subjective Subjective Date/Time Seen: 07/15/21 12:01 The patient is a 45-year-old female presenting for port placement. The patient has a history breast cancer status post chemo radiation. The patient actually had a port placed for her previous round of chemo in her left chest. The patien t had subsequent completion of treatment and had port removed. The patient denies anyt other central venous catheterization. Recent surveillance imaging shows lymphadenopathy and subsequent metastatic disease. Review of Systems Review of Systems: All systems reviewed & are unremarkable except as noted in HPI and below Exam Const: General: cooperative, comfortable and no acute distress Nutritional Appearance: overweight Orientation/consciousness: patient oriented x3 Neck: Neck: normal visual inspection and full ROM Chest: Chest palpation & inspection: normal inspection of the chest Other: incision from previous L sided VAD Resp: Effort & Inspection: normal respiratory effort Auscultation: clear to auscultation bilaterally Cardio: Rate: regular rate Rhythm: regular rhythm GI: Inspection: normal to inspection GI Palp: No abdominal tenderness Objective Data Vital Signs Vital Signs: Vital Signs - 24 hr 07/15/21 09:49 Temperature 36.3 C L Pulse Rate 90 Respiratory Rate 16 Blood Pressure 118/81 Pulse Oximetry 99 Meds/Results Medications: Active Medications Generic Name Dose Route Start Last Admin Trade Name Freq PRN Reason Stop Dose Admin Fentanyl Citrate 25 mcg 07/15/21 10:07 Fentanyl Citrate Inj (*Crx) 100 Mcg/2 Ml Vial IV PUSH Q2M PRN Pain Lactated Ringer's 1,000 mls @ 30 mls/hr 07/15/21 08:15 07/15/21 10:03 Lr - Lactated Ringers Iv IV CONT 30 mls/hr .Q24H KASI Administration Lactated Ringer's 1,000 mls @ 30 mls/hr 07/15/21 10:10 Lr - Lactated Ringers Iv IV CONT .Q24H KASI Ondansetron HCl 4 mg 07/15/21 10:07 Ondansetron Inj 4 Mg/2 Ml Vial IV PUSH ONCE PRN Nausea Oxycodone HCl 5 mg 07/15/21 10:07 Oxycodone Hcl (*Crx) 5 Mg Tab Ir PO ONCE PRN Pain
--- NOTE | 2021-07-15 12:05 | HP_ITS ---
This document was recreated with the correct heading. The original document was signed by Leonor Forrest MD on 07/15/21 1205. ADDENDUM please change document to History and Physical Addendum Documented By: Leonor Forrest MD 07/17/21906 Addendum Signed By: <Electronically signed by Leonor Forrest MD> [id number] Progress Note: A&P Assessment and Plan (1) Lymphadenopathy: Code(s): R59.1 - Generalized enlarged lymph nodes Status: Acute Assessment and Plan: Metastatic breast cancer, will need further treatment, will place port Subjective Subjective Date/Time Seen: 07/15/21 12:01 The patient is a 45-year-old female presenting for port placement. The patient has a history breast cancer status post chemo radiation. The patient actually had a port placed for her previous round of chemo in her left chest. The patient had subsequent completion of treatment and had port removed. The patient denies anyt other central venous catheterization. Recent surveillance imaging shows lymphadenopathy and subsequent metastatic disease. Review of Systems Review of Systems: All systems reviewed & are unremarkable except as noted in HPI and below Exam Const: General: cooperative, comfortable and no acute distress Nutritional Appearance: overweight Orientation/consciousness: patient oriented x3 Neck: Neck: normal visual inspection and full ROM Chest: Chest palpation & inspection: normal inspection of the chest Other: incision from previous L sided VAD Resp: Effort & Inspection: normal respiratory effort Auscultation: clear to auscultation bilaterally Cardio: Rate: regular rate Rhythm: regular rhythm GI: Inspection: normal to inspection GI Palp: No abdominal tenderness Objective Data Vital Signs Vital Signs: Vital Signs - 24 hr 07/15/21 09:49 Temperature 36.3 C L Pulse Rate 90 Respiratory Rate 16 Blood Pressure 118/81 Pulse Oximetry 99 Meds/Results Medications: Active Medications Generic Name Dose Route Start Last Admin Trade Name Freq PRN Reason Stop Dose Admin Fentanyl Citrate 25 mcg 07/15/21 10:07 Fentanyl Citrate Inj (*Crx) 100 Mcg/2 Ml Vial IV PUSH Q2M PRN Pain Lactated Ringer's 1,000 mls @ 30 mls/hr 07/15/21 08:15 07/15/21 10:03 Lr - Lactated Ringers Iv IV CONT 30 mls/hr .Q24H KASI Administration Lactated Ringer's 1,000 mls @ 30 mls/hr 07/15/21 10:10 Lr - Lactated Ringers Iv IV CONT .Q24H KASI Ondansetron HCl 4 mg 07/15/21 10:07 Ondansetron Inj 4 Mg/2 Ml Vial IV PUSH ONCE PRN Nausea Oxycodone HCl 5 mg 07/15/21 10:07 Oxycodone Hcl (*Crx) 5 Mg Tab Ir PO ONCE PRN Pain This dictation may have been done utilizing a voice recognition system. Attempts have been made to correct errors. However, there may be uncorrected grammatical, spelling, and recognition errors present. Report Initialized date/time: Leonor Forrest MD 07/15/21 / 1204 Electronically signed by: Leonor Forrest MD 07/15/211204 [facility]
--- NOTE | 2021-07-15 12:05 | WPDHPUPDATE1 ---
History and Physical Update Update Date/Time: 07/15/21 12:05 History and Physical has been reviewed, including an updated exam of the patient. There are NO changes in the patient's condition. Risks, benefits, and alternatives have been discussed and questions answered. Patient agrees to proceed with procedure.
[2021-07-15] MEDS: HEPARIN SODIUM 5,000 UNITS/ML VIAL 5000 UNITS IRRIGATION (12:21)
[2021-07-15] MEDS: BUPIVACAINE HCL 0.5% PF 30 ML VIAL 20 ML INFILTRATE (12:21)
[2021-07-15] MEDS: HEPARIN SODIUM, PORCINE 10,000 UNITS/10 ML VIAL 4000 UNITS IRRIGATION (12:22)
--- NOTE | 2021-07-15 12:36 | W.PM.PROC2 ---
Procedure Note - Detailed Date of Procedure 07/15/21 Pre-op Diagnosis Metastatic breast Cancer Post-op Diagnosis same Procedure Performed placement left subclavian venous access device under fluoroscopic guidance Surgeon Leonor Forrest MD Anesthesia MAC and local Indications 45-year-old female with metastatic left breast cancer Findings first stick L SCV Description of Procedure Patient was brought into the operating room and placed in the supine position. After adequate induction of mac anesthesia, the patient was prepped and draped in normal sterile fashion. Time-out was then done to verify the patient's identity, as well as the procedure being performed. I began by making a small incision in the left chest, I then gained access into the left subclavian vein with an 18 gauge needle. I then placed the guidewire into the vein and confirmed placement via fluoroscopic guidance. I then locally anesthetized the area in the left chest. I then enlarged the incision around the guidewire including making a subcutaneous pocket inferiorly to allow placement of the port itself. I then placed a dilating sheath over the guidewire into the left subclavian vein via sterile Seldinger technique. This was once again done and confirmed via fluoroscopic guidance. I then removed the dilator and the guidewire, now just leaving the sheath in the vein. I then fed the previously flushed catheter into the left subclavian vein under fluoroscopic guidance. At approximately 20 cm, the catheter was noted to be near the atrial caval junction. I then peeled away the sheath, now just leaving the catheter in the vein. I then was able to easily draw and flush from the catheter. The catheter was cut to fit and attached to the port itself. The port was placed into the previously made subcutaneous pocket and sutured in with 0 Ethibond suture. Final fluoroscopic view showed the termination of the catheter at the atrial caval junction with a nice smooth curvature back to the port itself. I was able to gain access to the port with a Taylor needle and was able to easily draw and flush from the port. I then flushed 4 cc of a final heparin flush into the port. The incision was closed with 3 0 Vicryl suture in the subcutaneous tissue and the skin was closed with 4 O Monocryl subcuticular suture. Dermabond was then placed on wound. The patient tolerated the procedure well and will be sent to the recovery room in stable condition. Implants L SCV VAD Estimated Blood Loss 5 Drains No Packing No Pathology none sent Complications No immediate complications Condition stable Disposition PACU
[2021-07-15 12:42] VITALS: BP 105/70; PULSE 87; RESP 12; O2SAT 99
[2021-07-15 13:10] VITALS: BP 108/77; PULSE 78; RESP 12; O2SAT 100
[2021-07-15 13:40] VITALS: BP 105/77; PULSE 72; RESP 12
== END 2021-07-15 13:52 | disposition home or self-care (01) ==
PROVIDERS: Visit Provider Surgery
PROC: (CPT 36561; principal; 2021-07-15 11:30)
DX: C50.412 Malignant neoplasm of upper-outer quadrant of left female breast (principal); C77.9 Secondary and unspecified malignant neoplasm of lymph node, unspecified; Z17.1 Estrogen receptor negative status [ER-]; E66.9 Obesity, unspecified; Z68.30 Body mass index [BMI] 30.0-30.9, adult
CPT/HCPCS: 36561; 77001; C1788; J0690; J1644; J1885; J2250; J2704; J3010; J7030; J7120

== ENCOUNTER 2021-09-27 09:09 | Outpatient (CLI) | payer BC, SELFPAY ==
--- NOTE | ~2021-09-27 | CT_ITS ---
EXAMINATION:CT diagnostic chest w con DATE: 09/27/2021 09:33 INDICATION: Malignant neoplasm of upper outer quadrant of left breast. TECHNIQUE: Computed tomography (CT) of the chest was performed with 75 mL Omnipaque 350 intravenous c ontrast. Automated exposure control and iterative reconstruction technique were employed. The dose-le ngth product (DLP) was 189.10 mGy-cm. COMPARISON: Chest CT 05/30/2021 FINDINGS: There is mild scarring at the lung apices. There is mild atelectasis in left lower lobe. No pleural effusion. There is a left subclavian port with tip in superior vena cava. The heart size is normal. No pericardial effusion. Main pulmonary artery is enlarged, consistent with pulmonary arteria l hypertension. There is mediastinal and bilateral axillary lymphadenopathy. For example, a 3.1 x 2.5 cm right axillary node previously measured 1.7 x 1.7 cm. There are multiple masses in left breast wi th muscular involvement. Radiopaque markers in one of the masses may be brachytherapy seeds. There is skin thickening of left breast. There is a 2.0 x 1.5 cm mass in inferior right breast. There is mild thoracic spondylosis. IMPRESSION: 1. Worsened left breast masses, consistent with primary malignancy. 2. Worsened mass in inferior right breast, which may be a second primary malignancy or metastatic dis ease. 3. Worsened mediastinal and bilateral axillary lymphadenopathy, consistent with metastatic disease. Reviewed, dictated and finalized at location A. ER AND STOCK HANDLER HELPER IMPRESSION: 1. Worsened left breast masses, consistent with primary malignancy. 2. Worsened mass in inferior right breast, which may be a second primary malign bailey or metastatic disease. 3. Worsened mediastinal and bilateral axillary lymphadenopathy, consistent with metastatic disease.
== END 2021-09-27 09:10 | disposition home or self-care (01) ==
LOC: ANHIMG 09:11
PROVIDERS: Visit Provider Internal Medicine Hematology & Oncology
DX: C50.412 Malignant neoplasm of upper-outer quadrant of left female breast (principal); Z17.1 Estrogen receptor negative status [ER-]; R59.0 Localized enlarged lymph nodes; R92.8 Other abnormal and inconclusive findings on diagnostic imaging of breast
CPT/HCPCS: 71260; Q9967

== ENCOUNTER 2022-03-11 13:59 | Outpatient (CLI) | payer BC, SELFPAY ==
--- NOTE | ~2022-03-11 | PE_ITS ---
EXAMINATION: PET skull to mid thigh DATE: 03/11/2022 15:43 INDICATION: Metastatic breast cancer. TECHNIQUE: Blood glucose level was 101 mg/dL. 9.128 mCi of 18-fluorodeoxyglucose (18-FDG) was adminis tered i.v. Low dose computed tomography (CT) images were acquired from the base of the brain to the p roximal thighs for attenuation correction and anatomic localization. Automated exposure control was e mployed. Dose-length product (DLP) was 844 mGy-cm. Positron emission tomography (PET) images were acq uired in the same distribution. COMPARISON: PET/CT 06/20/2021, chest CT 09/27/2021 FINDINGS: Head/neck: There is increased activity in the oral cavity, pharynx, major salivary glands, and glotti s without abnormal CT correlate, likely physiologic. There is increased activity in a normal-sized ri ght subarticular lymph node. Chest: The lungs demonstrate mild atelectasis. No pleural effusion. The heart size is normal. There i s a left subclavian port with tip in right atrium. There is mediastinal lymphadenopathy with increase d activity. For example, a 2.1 x 1.4 cm noted aorticopulmonary window demonstrates maximum SUV of 10. 2 and measured 3.3 x 1.9 cm on 09/27/2021. There are ill-defined masses in left breast with increased activity. For example, there is a 2.3 x 2.2 cm mass in medial left breast with maximum SUV of 7.7 rich t previously measured 2.8 x 2.6 cm on 09/27/2021. There is skin thickening in left breast. There is an ill-defined mass in medial aspect of left pectoralis major muscle with increased activity. There are brachytherapy seeds in a mass in left breast. There is bilateral axillary lymphadenopathy with incre ased activity. For example, a 3.5 x 3.0 cm right axillary node demonstrates maximum SUV of 17.0 and m easured 3.2 x 2.5 cm on 09/27/21. There is increased activity in a normal-sized bilateral subpectoral lymph nodes. There is a 1.8 x 1.3 cm mass in inferior right breast with maximum SUV of 6.4 that measu red 2.0 x 1.6 cm on 09/27/21. There is increased activity in bone marrow in multiple vertebral bodies without abnormal CT correlate, likely bone marrow stimulation. Abdomen/pelvis/proximal thighs: There is diffuse hepatic steatosis. The gallbladder, spleen, pancreas , adrenal glands, and kidneys are normal. There are no dilated loops of bowel. There is a widemouthed ventral hernia containing nonobstructed small bowel. There are no pathologically enlarged lymph node s. There is no free intraperitoneal fluid. There is increased activity in bone marrow in lumbosacral spine without abnormal CT correlate, likely bone marrow stimulation. IMPRESSION: 1. Left breast masses with increased activity with improvement from 09/27/2021, consistent with malign bailey. 2. Stable right breast mass with increased activity, consistent with a second primary malignancy or m etastatic disease. 3. Chest lymphadenopathy with increased activity with improvement from 09/27/2021, consistent with met astatic disease. Reviewed, dictated and finalized at location A. IMPRESSION: 1. Left breast masses with increased activity with improvement from 09/27/2021, consistent with malignancy. 2. Stable right breast mass with increased activity, consistent with a second p rimary malignancy or metastatic disease. 3. Chest lymphadenopathy with increased activity with improvement from 2, consistent with metastatic disease.
[2022-03-11 14:19] LABS: Glucose Point of Care 101 mg/dl (65-105)
== END 2022-03-11 14:00 | disposition home or self-care (01) ==
PROVIDERS: Visit Provider Internal Medicine Hematology & Oncology
DX: C50.412 Malignant neoplasm of upper-outer quadrant of left female breast (principal); R59.0 Localized enlarged lymph nodes
CPT/HCPCS: 78815; A9552

== ENCOUNTER 2022-04-27 21:12 | Emergency (ER) | payer BC, SELFPAY ==
[2022-04-27] VITALS (27 sets, daily range): BP systolic 80–122; BP diastolic 49–77; PULSE 83–110; RESP 11–24; TEMP 36.9; O2SAT 95–100
--- NOTE | ~2022-04-27 | CT_ITS ---
EXAMINATION: CTA chest PE abdomen pel DATE: 04/28/2022 00:50 INDICATION: Chest pain, shortness of breath. Abdominal pain and vomiting. History of breast cancer. TECHNIQUE: Computed tomography angiography (CTA) of the chest, abdomen and pelvis was performed with 100 mL Omnipaque-350 intravenous contrast timed to evaluate the pulmonary arteries. Coronal maximum i ntensity projection 3D-reconstructions were created by the technologist. Automated exposure control a nd iterative reconstruction technique were employed. Exam dose: 768.03 mGy-cm total exam DLP. COMPARISON: 03/11/2022 PET/CT scan: FINDINGS: Bilateral breast masses and prominent skin thickening of the left breast are noted in addit ion to probable left axillary lymphadenopathy (left axilla is only partially included in this examina tion), and severe right axillary lymphadenopathy. Bilateral internal mammary lymphadenopathy and superior, prevascular, aortopulmonary window lymphaden opathy are noted. Normal heart size. No thoracic aortic aneurysm or dissection. No pericardial effusion. There is diagnostic contrast enhancement of the pulmonary arteries and no evidence of pulmonary embol ism. Mild discoid atelectasis or scarring, left lower lobe. Left apical scarring. No pulmonary consolidati on or mass lesion is evident. Left Port-A-Cath catheter with tip in right atrium. No hepatic space-occupying mass lesion. The gallbladder is unremarkable. No gallbladder wall thickeni ng or pericholecystic fluid or fat stranding. No bile duct or pancreatic duct dilatation. No pancreat ic mass lesion or calcification. Normal splenic size. No adrenal mass lesion. No renal mass lesion or urinary tract calculus or hydroureteronephrosis. Normal caliber of the abdominal aorta. The uterus, adnexal areas and urinary bladder are unremarkable. Normal appendix. No bowel obstruction or intraperitoneal free air. No suspicious osteolytic or osteoblastic lesions are noted. IMPRESSION: Bilateral breast masses, prominent left breast skin thickening, axillary adenopathy, par ticularly severe on the right and bilateral internal mammary lymphadenopathy as well as mediastinal a denopathy, consistent with metastatic disease No evidence of pulmonary embolism Reviewed, dictated and finalized at Location A. Reviewed, dictated and finalized at location A. IMPRESSION: Bilateral breast masses, prominent left breast skin thickening, ax illary adenopathy, particularly severe on the right and bilateral internal mamm stacy lymphadenopathy as well as mediastinal adenopathy, consistent with metastat ic disease No evidence of pulmonary embolism
[2022-04-27 21:49] LABS: Basophils Percent Auto 0.3 % (0.2-1.2); Eosinophils Absolute Auto 0.2 K/mm3 (0-0.3); Eosinophils Percent Auto 2.4 % (0-4.4); Hematocrit 33.9 % (37.0-47.0); Hemoglobin 11.3 g/dL (12.0-15.0); Immature Granulocyte Absolute 0.03 K/mm3 (0.00-0.031); Immature Granulocyte Percent A 0.4 % (0-0.5); Lymphocytes Absolute Auto 0.84 K/mm3 (0.9-3.2); Lymphocytes Percent Auto 11.4 % (18.3-44.2); Mean Corpuscular HGB Conc 33.3 g/dl (32-36); Mean Corpuscular Hemoglobin 28.5 pg (26-34); Mean Corpuscular Volume 85.4 fl (80-100); Mean Platelet Volume 9.8 fl (7.4-10.4); Monocytes Absolute Auto 0.4 K/mm3 (0.1-0.6); Monocytes Percent Auto 4.7 % (2.6-8.5); Neutrophils Percent Auto 80.8 % (45.5-73.1); Platelet Count Result 294 k/mm3 (150-375); Red Blood Count 3.97 M/mm3 (4.2-5.4); Red Cell Distribution Width 14.1 % (11.5-14.5); White Blood Count 7.4 K/mm3 (4.5-10.0)
[2022-04-27 22:05] LABS: Alanine Aminotransferase 18 U/L (6-35); Albumin Level 4.1 g/dL (3.5-5.1); Alkaline Phosphatase 95 U/L (38-126); Anion Gap 13 mmol/L (8-16); Aspartate Amino Transferase 25 U/L (14-36); Bilirubin,Total 0.5 mg/dL (0.2-1.3); Blood Urea Nitrogen 16 mg/dL (7-17); Calcium 9.1 mg/dL (8.4-10.2); Carbon Dioxide 24 mmol/L (22-30); Chloride 98 mmol/L (98-107); Estimated Glomerular Filt Rate > 60; Glucose 136 mg/dL (65-110); Lipase 90 U/L (23-300); Potassium 3.8 mmol/L (3.4-5.0); Sodium 135 mmol/L (137-145)
[2022-04-27] MEDS: CENTRAL LINE FLUSH 10 ML IV PUSH (22:08)
--- NOTE | 2022-04-27 22:55 | ECG_ITS ---
Measurements Intervals [place] Rate: 92 P: 54 ID: [id number] QRS: 15 QRSD: 79 T: 31 QT: 336 QTc: 416 Interpretive Statements SINUS RHYTHM BASELINE ARTIFACT- I, II, III NORMAL ECG COMPARED TO ECG 05/29/2021 22:53:20 NO SIGNIFICANT CHANGES Electronically Signed On 04-28-2022 6:37:42 CDT by Artie Graham D.O.
[2022-04-27] MEDS: SODIUM CHLORIDE 0.9% IV 1,000 ML 999 ML IV CONT (23:22)
[2022-04-27] MEDS: METOCLOPRAMIDE HCL INJ 10 MG/2 ML VIAL IV PUSH (23:22)
[2022-04-27] MEDS: PANTOPRAZOLE SODIUM IV 40 MG VIAL IV PUSH (23:22)
[2022-04-27] MEDS: diphenhydrAMINE HCl INJ 50 MG/ML VIAL 25 MG IV PUSH (23:22)
[2022-04-27 23:32] LABS: Appearance Urine Clear (Clear); Bilirubin Urine Negative (Negative); Blood Urine Negative (Negative); Color Urine Yellow (Yellow); Glucose Urine UA Negative (Negative); Ketones Urine Trace mg/dL (Negative); Leukocyte Esterase Ur Negative LEU/UL (Negative); Nitrate Urine Negative (Negative); Protein Urine Trace mg/dL (Negative); Specific Grav Ur 1.015 (1.001-1.035); pH Urine 7.5 (5.0-9.0)
--- NOTE | 2022-04-27 23:36 | ED.NAVMDI ---
HPI - Nausea/Vomiting/Diarrhea General Chief complaint: Nausea/Vomiting/Diarrhea Stated complaint: sick from chemo Time Seen by Provider: 04/27/22 21:25 Source: patient Mode of arrival: ambulatory Limitations: no limitations History of Present Illness HPI Narrative: This is a 46 year old female that presents to the ER for nausea, vomiting and diarrhea. Ongoing over the last couple of days. Reports history of metastatic breast cancer. She was started on a new chemotherapy last Thursday. Reports over the last couple of days she has started to have burning epigastric/chest pain. Also reports some shortness of breath. Denies fevers. Related Data Home Medications Medication Instructions Recorded Confirmed ondansetron 8 mg disintegrating 8 mg PO Q8H PRN Nausea 08/22/21 02/27/22 tablet dexamethasone 4 mg tablet See Rx Instructions .Route .COMPLEX 09/12/21 02/27/22 cyanocobalamin (vitamin B-12) 1,000 mcg PO DAILY 11/14/21 02/27/22 1,000 mcg tablet (Vitamin B-12) ferrous sulfate 325 mg (65 mg 325 mg PO BID 11/14/21 02/27/22 iron) tablet zolpidem 10 mg tablet (Ambien) 10 mg PO HS PRN Sleep 12/05/21 02/27/22 ivammbmr-bjy-madx-FA-Ca carb-vit K 1 tablet PO DAILY 12/19/21 02/27/22 18 mg iron-400 mcg-500 mg tablet potassium chloride 10 mEq 10 meq PO DAILY 01/16/22 02/27/22 tablet,extended release Allergies Allergy/AdvReac Type Severity Reaction Status Date / Time metronidazole Allergy Severe HIVES/RED Verified 04/27/22 21:29 FACE Penicillins Allergy Severe HIVES Verified 04/27/22 21:29 Review of Systems Review of Systems: CONSTITUTIONAL: Denies fever CARDIOVASCULAR: Reports chest pain. Denies edema. RESPIRATORY: Reports dyspnea. Denies cough GASTROINTESTINAL: Reports abdominal pain, nausea, vomiting, and diarrhea. GENITOURINARY: Denies dysuria All systems reviewed & are unremarkable except as noted in HPI and below PMFSH Past Medical History Medical History Malignant neoplasm of upper-outer quadrant of left breast in female, estrogen receptor negative Surgical History Surgical History Delivery by section History of partial mastectomy of left breast Family History Family History Sibling Breast cancer Asthma Father Heart disease Heart attack Social History Social History Smoking status: Never smoker Second hand tobacco smoke exposure: No Alcohol intake: never Alcohol use details: socially Substance use: never Substance use type: marijuana Last use: 4 months ago Spiritual care concerns: No Exam Narrative: GENERAL: Well-appearing, well-nourished, and in no acute distress. HEAD: Normocephalic, atraumatic. EYES: EOMI. CHEST: Clear to auscultation. No respiratory distress. No wheezes rales or rhonchi HEART: Regular rate and rhythm. No murmur heard. Normal peripheral pulses. ABDOMEN: Soft, nondistended, normal active bowel sounds. Mild tenderness to palpation in epigastrium, without guarding. No CVA tenderness EXTREMITIES: Normal range of motion. No edema. SKIN: Warm, dry, no rash. NEURO: No focal deficits. Alert and oriented x3. PSYCH: Normal mood and affect Course Vital Signs Vital signs: Vital Signs Temperature 98.5 F 04/27/22 21:14 Pulse Rate 94 04/27/22 21:14 Respiratory Rate 16 04/27/22 21:14 Blood Pressure 122/77 04/27/22 21:14 Pulse Oximetry 100 04/27/22 21:14 Temperature 98.5 F 04/27/22 21:14 Pulse Rate 76 04/28/22 01:31 Respiratory Rate 16 04/28/22 01:30 Blood Pressure 92/59 L 04/28/22 01:30 Pulse Oximetry 99 04/28/22 01:31 MDM - Nausea/Vomiting/Diarrhea MDM Narrative Medical decision making narrative: Patient presents to the emergency department for epigastric pain, v
[2022-04-27 23:40] LABS: Bacteria Urine Trace /hpf; Mucus Urine Rare /lpf; RBC Urine 0-2 /hpf (0-2); Squamous Epithelial Cell Urine Rare /hpf (Few); WBC Urine 0-3 /hpf
[2022-04-27 23:46] LABS: INR 1.1; Prothrombin Time 13.7 Seconds (11.1-14.7)
[2022-04-27 23:47] LABS: Partial Thromboplastin Time 31.3 SECONDS (22.3-36.8)
[2022-04-27 23:55] LABS: Add Urine Microscopic? YES
[2022-04-27 23:57] LABS: D Dimer 1.52 ug/mL (<0.48)
[2022-04-28] VITALS (16 sets, daily range): BP systolic 82–122; BP diastolic 50–87; PULSE 75–86; RESP 11–16; O2SAT 98–100
[2022-04-28 00:14] LABS: Influenza A QL RT-PCR Negative (Negative); Influenza B QL RT-PCR Negative (Negative); SARS-CoV-2 RNA PCR Negative
--- NOTE | 2022-04-28 00:21 | PC.NURSE ---
Received a call from Melissa in [place]. Wants bedside test on pt for CT. Reported pt actively receiving chemo therapy and will sign form stating not .
[2022-04-28 00:32] LABS: Troponin I < 0.012 ng/mL (0.000-0.034)
[2022-04-28] MEDS: HEPARIN SODIUM LOCK FLUSH 500 UNITS/5 ML SYRINGE IV PUSH (02:11)
== END 2022-04-28 02:18 | disposition home or self-care (01) ==
PROVIDERS: Physician Assistant; Emergency Provider Emergency Medicine
DX: K52.9 Noninfective gastroenteritis and colitis, unspecified (principal); C50.412 Malignant neoplasm of upper-outer quadrant of left female breast; C79.9 Secondary malignant neoplasm of unspecified site; Z17.1 Estrogen receptor negative status [ER-]; Z90.12 Acquired absence of left breast and nipple; Z20.822 Contact with and (suspected) exposure to COVID-19; Z79.899 Other long term (current) drug therapy
CPT/HCPCS: 36415; 71275; 74177; 80053; 81001; 83690; 84484; 85025; 85380; 85610; 85730; 87502; 93005; 96361; 96365; 96375; 99284; C9113; C9803; J0131; J1200; J1642; J2765; J7030; Q9967; U0003; U0005

== ENCOUNTER 2023-03-16 13:00 | Emergency (ER) | payer BC, SELFPAY ==
--- NOTE | ~2023-03-16 | XR_ITS ---
EXAMINATION: XR chest 2V Exam Date/Time: 03/16/2023 13:52 CDT HISTORY: chest pain, HX CA, POST CHEST TUBE COMPLICATIONS 3 WKS AGO Comparison: 07/15/2021. RESULT: Lines, tubes, and devices: Left chest implanted port, terminating at the cavoatrial junction. Left a xillary or breast surgical clips. Lungs and pleura: Subsegmental right basilar airspace opacity. Linear opacity in the left lung base. Mild right lateral costophrenic angle blunting and minimal left posterior costophrenic angle bluntin g. Cardiomediastinal silhouette: Stable. Other: No acute osseous or upper abdominal finding. IMPRESSION: Subsegmental left basilar atelectasis/consolidation. Right basilar scar/atelectasis. Trace left and s mall right pleural effusions. Reviewed, dictated and finalized at location K. IMPRESSION: Subsegmental left basilar atelectasis/consolidation. Right basilar scar/atelect asis. Trace left and small right pleural effusions.
--- NOTE | ~2023-03-16 | CT_ITS ---
EXAMINATION: CTA chest PE protocol DATE: 03/16/2023 14:43 INDICATION: CP, SOB, breast CA, recent pericardial window TECHNIQUE: Computed tomography angiography (CTA) of the chest was performed with 100 mL Omnipaque-350 intravenous contrast timed to evaluate the pulmonary arteries. Coronal maximum intensity projection 3D-reconstructions were created by the technologist. The dose-length product (DLP) was 345.44 mGy-cm. Automated exposure control and iterative reconstruction technique were employed. COMPARISON: 04/28/2022; X-ray chest, 03/16/2023. FINDINGS: Lung parenchyma and airways: 13 mm fat density pleural based pulmonary mass in the lingula, possibly post therapeutic/post procedural. No suspicious pulmonary mass. Bibasilar scar/atelectasis. Biapical pleural scarring. The airways are clear Pleura: Small right and trace left pleural fluid collections. Thoracic inlet, axillae and chest wall: Bilateral axillary lymphadenopathy. No thyroid mass. Dermal t hickening over the bilateral breasts and anterior chest. Numerous bilateral breast soft tissue masses . Implanted left chest port terminating at the cavoatrial junction. Thoracic aorta: Normal. Mediastinum: Anterior mediastinal, bilateral internal mammary. Prevascular, subcarinal and paratrache al lymphadenopathy. Heart and pericardium: Small volume pericardial effusion with nodular pericardial thickening. Coronary artery calcifications: Absent. Upper abdomen: No significant finding. Bones: No acute osseous finding. Pulmonary arteries: Study quality: Adequate. No pulmonary emboli detected. IMPRESSION: No CT evidence of acute pulmonary embolus. Worsening bilateral breast dermal thickening and innumerable bilateral breast masses. Worsening bilat eral axillary, internal mammary, and mediastinal lymphadenopathy. Small pericardial effusion with nodular pericardial thickening. Small right and trace left pleural effusions. Reviewed, dictated and finalized at location K. IMPRESSION: No CT evidence of acute pulmonary embolus. Worsening bilateral breast dermal thickening and innumerable bilateral breast m asses. Worsening bilateral axillary, internal mammary, and mediastinal lymphade nopathy. Small pericardial effusion with nodular pericardial thickening. Small right and trace left pleural effusions.
[2023-03-16 13:05] VITALS: BP 113/77; PULSE 83; RESP 18; TEMP 37.1; O2SAT 100
--- NOTE | 2023-03-16 13:13 | ECG_ITS ---
Measurements Intervals [place] Rate: 79 P: 46 [place]: 146 QRS: 7 QRSD: 78 T: 165 QT: 354 QTc: 408 Interpretive Statements SINUS RHYTHM MODERATE T-WAVE ABNORMALITY, CONSIDER ANTERIOR ISCHEMIA [-0.1+ mV T WAVE IN I/aVL/V5/V6] COMPARED TO ECG 04/27/2022 21:25:28 PRECORDIAL T-WAVE INVERSION IS MORE PRONOUNCED Electronically Signed On 03-16-2023 17:11:36 CDT by Pawel Gorman M.D.
[2023-03-16 13:15] VITALS: PULSE 78
[2023-03-16 13:47] VITALS: PULSE 78; O2SAT 99
[2023-03-16 13:57] LABS: Eosinophils Percent Auto 0.6 % (0-4.4); Hematocrit 27.7 % (37.0-47.0); Hemoglobin 8.4 g/dL (12.0-15.0); Immature Granulocyte Absolute 0.01 K/mm3 (0.00-0.031); Immature Granulocyte Percent A 0.2 % (0-0.5); Lymphocytes Absolute Auto 0.71 K/mm3 (0.9-3.2); Lymphocytes Percent Auto 13.1 % (18.3-44.2); Mean Corpuscular HGB Conc 30.3 g/dl (32-36); Mean Corpuscular Hemoglobin 27.5 pg (26-34); Mean Corpuscular Volume 90.5 fl (80-100); Mean Platelet Volume 8.8 fl (7.4-10.4); Monocytes Absolute Auto 0.3 K/mm3 (0.1-0.6); Monocytes Percent Auto 4.8 % (2.6-8.5); Neutrophils Absolute Auto 4.4 K/mm3 (1.3-6.7); Neutrophils Percent Auto 81.3 % (45.5-73.1); Nucleated Red Blood Cells Perc 0.7 % (0.0-0.2); Platelet Count Result 336 k/mm3 (150-375); Red Blood Count 3.06 M/mm3 (4.2-5.4); Red Cell Distribution Width 17.4 % (11.5-14.5); White Blood Count 5.4 K/mm3 (4.5-10.0)
[2023-03-16 14:07] LABS: Alanine Aminotransferase 43 U/L (6-35); Albumin Level 3.5 g/dL (3.5-5.1); Alkaline Phosphatase 90 U/L (38-126); Anion Gap 3 mmol/L (8-16); Aspartate Amino Transferase 50 U/L (14-36); Bilirubin,Total 0.3 mg/dL (0.2-1.3); Blood Urea Nitrogen 14 mg/dL (7-17); Calcium 8.8 mg/dL (8.4-10.2); Carbon Dioxide 31 mmol/L (22-30); Chloride 102 mmol/L (98-107); Estimated CRCL calculation 95 ml/min; Estimated Glomerular Filt Rate > 60; Glucose 106 mg/dL (65-110); INR 1.3; Lipase 98 U/L (23-300); Potassium 3.4 mmol/L (3.4-5.0); Prothrombin Time 16.3 Seconds (11.1-14.7); Sodium 136 mmol/L (137-145)
[2023-03-16 14:08] LABS: Partial Thromboplastin Time 28.4 SECONDS (22.3-36.8)
[2023-03-16 14:19] LABS: Troponin I < 0.012 ng/mL (0.000-0.034)
--- NOTE | 2023-03-16 14:20 | ED.CHESTPAIN ---
HPI - Chest Pain General Chief Complaint: Chest Pain Stated Complaint: pericardial window opened Time Seen by Provider: 03/16/23 13:54 History of Present Illness HPI narrative: Patient is a 47-year-old female with a history of breast cancer presenting with chest pain. Patient states that she had a pericardial window several weeks ago due to a very large pericardial effusion. States that over the last couple of days she has noticed that one of the incisions has started to dehisce. States that she has had chest pain and shortness of breath since then. States that she called her oncologist who advised that she come in for evaluation. Denies fevers or chills, headache, numbness or weakness, cough, abdominal pain, vomiting, diarrhea, dysuria, leg swelling. Related Data Home Medications Medication Instructions Recorded Confirmed ondansetron 8 mg disintegrating 8 mg PO Q8H PRN Nausea 08/22/21 02/27/22 tablet dexamethasone 4 mg tablet See Rx Instructions .Route .COMPLEX 09/12/21 02/27/22 cyanocobalamin (vitamin B-12) 1,000 mcg PO DAILY 11/14/21 02/27/22 1,000 mcg tablet (Vitamin B-12) ferrous sulfate 325 mg (65 mg 325 mg PO BID 11/14/21 02/27/22 iron) tablet zolpidem 10 mg tablet (Ambien) 10 mg PO HS PRN Sleep 12/05/21 02/27/22 azniocvd-fhl-zyur-FA-Ca carb-vit K 1 tablet PO DAILY 12/19/21 02/27/22 18 mg iron-400 mcg-500 mg tablet potassium chloride 10 mEq 10 meq PO DAILY 01/16/22 02/27/22 tablet,extended release Allergies Allergy/AdvReac Type Severity Reaction Status Date / Time metronidazole Allergy Severe HIVES/RED Verified 03/16/23 13:14 FACE Penicillins Allergy Severe HIVES Verified 03/16/23 13:14 Review of Systems Review of Systems: All systems reviewed & are unremarkable except as noted in HPI and below PMFSH Past Medical History Medical History Malignant neoplasm of upper-outer quadrant of left breast in female, estrogen receptor negative Surgical History Surgical History Delivery by section History of partial mastectomy of left breast Family History Family History Sibling Breast cancer Asthma Father Heart disease Heart attack Social History Social History Smoking status: Never smoker Second hand tobacco smoke exposure: No Alcohol intake: never Alcohol use details: socially Substance use: never Substance use type: marijuana Last use: 4 months ago Living arrangements: with family Spiritual care concerns: No Exam Narrative: GENERAL: Well-appearing, well-nourished, and in no acute distress. Pleasant and cooperative HEAD: Normocephalic, atraumatic. EYES: PERRLA and EOMI. ENT: Nares clear, no rhinorrhea or epistaxis. Mucous membranes moist. NECK: Supple. CHEST: Clear to auscultation. No respiratory distress. HEART: Regular rate and rhythm. No murmur heard. Normal peripheral pulses. ABDOMEN: Soft, nontender, nondistended; 1 cm healing incision in the upper epigastrium that appears to be dehiscing, healthy white granulation tissue underneath the incision, no oozing or bleeding, no purulence, no surrounding cellulitis EXTREMITIES: Normal range of motion. No edema. SKIN: Warm, dry, no rash. NEURO: No focal deficits. Alert and oriented x3. PSYCH: Normal mood and affect. Course Vital Signs Vital signs: Vital Signs Temperature 98.7 F 03/16/23 13:05 Pulse Rate 83 03/16/23 13:05 Respiratory Rate 18 03/16/23 13:05 Blood Pressure 113/77 03/16/23 13:05 Pulse Oximetry 100 03/16/23 13:05 Oxygen Delivery Room Air 03/16/23 13:05 Temperature 98.7 F 03/16/23 13:05 Pulse Rate 80 03/16/23 18:07 Respiratory Rate 20 03/16/23 18:07 Blood Pressure 108/70 03/16/23 18:07 Pulse Oximetry 97
[2023-03-16] MEDS: ASPIRIN 81 MG CHEWABLE TABLET 324 MG PO (14:26)
[2023-03-16] MEDS: LACTATED RINGERS 1,000 ML 999 ML IV CONT (14:58)
[2023-03-16] MEDS: CENTRAL LINE FLUSH 10 ML IV PUSH (14:59)
[2023-03-16] MEDS: HYDROmorphone HCL INJ (*CRX) 1 MG/ML SYR IV PUSH ×2 (14:59→17:51)
[2023-03-16 15:02] VITALS: BP 110/84; PULSE 78; RESP 18; O2SAT 99
[2023-03-16 17:06] LABS: Troponin I < 0.012 ng/mL (0.000-0.034)
[2023-03-16] MEDS: HEPARIN SODIUM LOCK FLUSH 500 UNITS/5 ML VIAL (17:52)
[2023-03-16 17:53] VITALS: BP 108/70; PULSE 83; RESP 17; O2SAT 100
[2023-03-16 18:07] VITALS: BP 108/70; PULSE 80; RESP 20; O2SAT 97
== END 2023-03-16 18:10 | disposition home or self-care (01) ==
PROVIDERS: Emergency Provider Emergency Medicine
DX: T81.31XA Disruption of external operation (surgical) wound, not elsewhere classified, initial encounter (principal); C50.412 Malignant neoplasm of upper-outer quadrant of left female breast; Z17.1 Estrogen receptor negative status [ER-]; Y83.8 Other surgical procedures as the cause of abnormal reaction of the patient, or of later complication, without mention of misadventure at the time of the procedure; R94.31 Abnormal electrocardiogram [ECG] [EKG]
CPT/HCPCS: 36415; 71046; 71275; 80053; 83690; 84484; 85025; 85610; 85730; 93005; 96361; 96374; 96376; 99284; A9270; J1170; J1642; J7120; Q9967

== ENCOUNTER 2023-05-15 12:54 | Emergency (ER) | payer BC, SELFPAY ==
--- NOTE | 2023-05-15 13:12 | PC.NURSE ---
Pt seen leaving ER in wheelchair by
== END 2023-05-15 13:12 | disposition left against medical advice (07) ==
DX: Z53.21 Procedure and treatment not carried out due to patient leaving prior to being seen by health care provider (principal)
CPT/HCPCS: 99199